=== PATIENT | female | born 1935 | race Caucasian/White ===

== ENCOUNTER 2017-05-13 08:28 | Observation (INO) ==
--- NOTE | 2017-05-13 08:40 | History & Physical Report ---
Date of Encounter: 05/13/17 Time of Encounter: 08:40 24 Hour HP Update - Instructions Instructions: If the History and Physical is less than 30 days old and was completed prior to A.M. admission and or procedure and has NOT been updated on calendar day of procedure please complete this update prior to performing procedure. - Update Patient reports changes in Medical Condition: No Changes in examination, assessment, or condition: No Changes in Medication: No Preop tests/diagnostics Reviewed: Yes Surgery Remains Indicated: Yes Consent for Planned Operative Procedure(s) Verified: Yes
[2017-05-13] MEDS ORDERED: Lidocaine -MPF 1% 2 ML VIAL ID ONE (09:16)
--- NOTE | 2017-05-13 09:20 | Anesthesia Evaluation PreOp ---
Date of Encounter: 05/13/17 Time of Encounter: 09:17 - Past History Planned Operation: Cryoablation Cardiac History: HTN, Hyperlipidemia, Arrhythmia (H/O A-Fib) Pulmonary History: Former smoker (quit in 1986,m smoked for 5 years), COPD ENGINEERING TECHNICAL SPECIALIST History: CVA (no residual), Other (H/O polio with RLE weakness) Other Medical History: Hepatic (metastatic lesion), Diabetes Type II, Other (H/ O breast CA S/P XRT, H/O colon CA, obesity BMI=42.6, depression) Anesthesia History: No Prior Anesthetic Complications, Past Anesthesia Alcohol Use: none Drug use: none Medications and Allergies Atorvastatin [Lipitor] 40 mg PO HS 09/17/16 [History] Carvedilol [Coreg] 6.25 mg PO BIDWM 09/17/16 [History] Insulin Glargine,Hum.rec.anlog [Lantus Solostar] 10 unit SQ QWEEK 09/17/16 [ History] Meclizine [Antivert] 12.5 mg PO TID 09/17/16 [History] Metformin HCl [Fortamet] 500 mg PO BID 09/17/16 [History] OLANZapine [Zyprexa] 5 mg PO HS 09/17/16 [History] Oxycodone HCl [Oxaydo] 5 mg PO Q6HR PRN 09/17/16 [History] Sertraline [Zoloft] 100 mg PO DAILY 09/17/16 [History] Docusate Sodium [Colace] 100 mg PO BID #60 capsule 10/18/16 [Rx] Fluticasone/Vilanterol [Breo Ellipta 100-25 Mcg INH] 1 each IH DAILY 10/18/16 [ History] Polyethylene Glycol 3350 [MiraLAX Powder Bulk 17.9 Oz] 17 gm PO DAILY #510 gm [Rx] Capecitabine [Xeloda] 3 tab PO BID #84 tablet 11/01/16 [Rx] Hydrocortisone 2.5% CREAM [Cortaid] 1 appl TP TID #1 tube 11/01/16 [Rx] Ondansetron HCl [Zofran] 4 mg PO Q4H PRN #30 tablet 11/01/16 [Rx] Prochlorperazine Maleate [Compazine] 10 mg PO Q6H PRN #30 tablet 11/01/16 [Rx] Omeprazole [PriLOSEC] 20 mg PO BIDAC #30 cap 11/20/16 [Rx] 3 Allergy/AdvReac Type Severity Reaction Status Date / Time Penicillins Allergy Rash Verified 03/14/17 16:21 - Meds/Allergy Pre-op Review Medications Reviewed: Yes Allergies Reviewed: Yes Beta Blockers on Current Med List: Yes If Beta Blockers taken, Date/Time (Last Dose taken): 05/13/2017 at 0630 Anesthesia Results - Labs Laboratory Tests 05/01/17 05/01/17 05/01/17 14:39 14:39 14:39 WBC 12.5 H Hgb 14.5 Hct 45.7 H Plt Count 344 PT 11.3 INR 1.1 Sodium 138 Potassium 4.1 BUN 18 Creatinine 0.84 - Imaging EKG: report reviewed (05/01/2017 SINUS RHYTHM MODERATE VOLTAGE CRITERIA FOR LVH, CONSIDER NORMAL VARIANT POSSIBLE ANTERIOR MYOCARDIAL INFARCTION, PROBABLY OLD INFERIOR MYOCARDIAL INFARCTION, PROBABLY OLD Left axis deviation POOR R WAVE PROGRESSION) Additional studies: 04/24/2013 Echo Impressions: * LVEF 45%. There is mild global hypokinesis. * Moderate aortic regurgitation. * Indeterminate diastolic function because of atrial fibrillation * Mild-moderate mitral regurgitation. * Mild tricuspid regurgitation. * Normal right ventricular size and function. * Probably mild pulmonary hypertension. * Estimated RVSP was 35 mmHg. * Clinical correlation is suggested. * Critical results called to ordering physician. Anesthesia Exam O2 Sat Height 1.63 m Height 1.63 m Weight 112.491 kg Weight 112.491 kg O2 Sat by Pulse Oximetry 90 Vital Signs Temp Pulse Resp BP Pulse Ox 97.9 F 88 18 157/83 90 05/13/17 09:08 05/13/17 09:08 05/13/17 09:08 05/13/17 09:08 05/13/17 09:08 Height: 5'4'' Weight: 248 lbs NPO (# of Hours): 8 Pain Scale: 7 (back) Pain Scale Used: Numeric (1 - 10) - HEENT Pupil (Motor): EOMI Mallampati: II Teeth: Edentulous Oral Opening: Greater than 3 - ENGINEERING TECHNICAL SPECIALIST LOC: Oriented ENGINEERING TECHNICAL SPECIALIST Motor: Normal RUE, Normal LUE, Normal LLE, Normal Face, Deficit RLE ENGINEERING TECHNICAL SPECIALIST Sensory: Normal: RUE, LUE, RLE, LLE, Face - Cardiac Rhythm: Regular Murmur: None - Pulmonary Breath Sounds: bilateral Clear Respiratory Effort: Symmetrical Anesthesia Assess/Plan ASA Score: 3 Modified Jeaneth Scale for Level of Consciousness: Cooperative, oriented, and tranquil Anesthetic Plan: General Monitoring Plan: Standard Monitors Recovery Plan: PACU
[2017-05-13] MEDS ORDERED: Albuterol 2.5 MG/3 ML NEBULIZER IH ONE (09:24)
[2017-05-13] MEDS ORDERED: Ringers Solution, Lactated 500 ML IVC SCH (09:30)
[2017-05-13] MEDS ORDERED: 0.9 % Sodium Chloride 1,000 ML ONE (10:15)
[2017-05-13] MEDS ORDERED: *HR* Labetalol 20 MG/4 ML SYRINGE IVP PRN (11:40)
[2017-05-13] MEDS ORDERED: Ringers Solution, Lactated 1,000 ML ONE (11:41)
[2017-05-13] MEDS ORDERED: Acetaminophen IV 1,000 MG/100 ML INFUS..BTL IVPB ONE (11:42)
[2017-05-13] MEDS: *HR* Meperidine 25 MG/ML SYRINGE IVP PRN ×2 (11:42→12:00)
[2017-05-13] MEDS ORDERED: *HR* Meperidine 25 MG/ML SYRINGE ONE (11:42)
[2017-05-13] MEDS: *HR* FentaNYL (PF) 100 MCG/2 ML VIAL IVP PRN ×4 (12:06→12:36)
[2017-05-13] MEDS ORDERED: *HR* OxyCODONE Oral Soln 5 MG/5 ML UD.LIQ PO PRN (12:54)
[2017-05-13] MEDS ORDERED: *HR* OxyCODONE Immed Rel 5 MG TABLET PO ONE (13:15)
[2017-05-13] MEDS ORDERED: Ondansetron 4 MG/2 ML VIAL IVP ONE ×2 (13:53→17:06)
--- NOTE | 2017-05-13 15:26 | Anesthesia Evaluation Post Op ---
Date of Encounter: 05/13/17 Time of Encounter: 14:35 - Vital Signs Vital Signs: Vital Signs/O2 Sat, Most Current Temp Pulse Resp BP Pulse Ox 97.9 F 74 18 161/71 93 05/13/17 12:58 05/13/17 14:00 05/13/17 14:00 05/13/17 14:00 05/13/17 14:00 - Lungs Lungs: Clear Ascult./Percussion - Airway Airway: Non-obstructed - Cardiovascular Regular Rate - Mental Status Mental Status: Alert & Oriented, Answers Appropriately - Pain Pain Scale: 9 (patient being admitted for intractable pain ) Pain Scale used: Numeric (1 - 10) - Nausea Vomiting Nausea Vomiting: Not Present - Hydration Hydration: Tolerates oral liquids, Has not voided - Discharge PostOp Status: Transfer Patient to floor
[2017-05-13] MEDS ORDERED: Ondansetron 4 MG/2 ML VIAL IVP PRN (16:02)
[2017-05-13] MEDS ORDERED: Naloxone 0.4 MG/ML INJ IVP PRN (16:02)
[2017-05-13] MEDS ORDERED: *HR* Dextrose 50 % in Water (Syg) 50 ML SYRINGE IVP PRN (16:02)
[2017-05-13] MEDS ORDERED: Dextrose Gel 15 GM/37.5 ML TUBE PO PRN ×2 (16:02)
[2017-05-13] MEDS ORDERED: D5% in Water 1,000 ML IVC PRN (16:02)
--- NOTE | 2017-05-13 16:10 | Internal Med History&Physical ---
<ParamjitHa - Last Filed: 05/13/17 16:07> Date of Encounter: 05/13/17 Time of Encounter: 16:07 Assessment and Plan (1) Intractable pain Current visit: Yes Status: Acute Patient reports severe pain s/p ablation of her liver, near the site of the procedure Will offer her Oxycodone 10 mg q6hr, Ultram 50 mg q6hr, and Tylenol PRN According to her eCW documents, she takes Oxycodone 7.5 mg q6hr, so this pain regimen will be higher Continue other supportive measures such as anti-emetics and start on clears given mild nausea Anticipate discharge tomorrow if her pain is better controlled (2) Afib Current visit: Yes Status: Chronic Patient currently in NSR and non-tachycardic Continue rate control with home Coreg dose She does not take anticoagulation but may be candidate given her history of cancer and PE Will hold off starting blood thinners for now given her report of blood after bowel movements; monitor Hb Qualifiers: Atrial fibrillation type: paroxysmal Qualified Code(s): I48.0 - Paroxysmal atrial fibrillation (3) Hypertension Current visit: Yes Status: Chronic Her blood pressure has been elevated since the procedure, likely secondary to pain Continue home Lisinopril and Coreg Will add IV Hydralazine PRN if SBP > 170 Qualifiers: Hypertension type: essential hypertension Qualified Code(s): I10 - Essential (primary) hypertension (4) Non-insulin dependent type 2 diabetes mellitus Current visit: Yes Status: Chronic A1c checked this month was 6.8% Start on low dose SSI ACHS accuchecks Will hold home anti-diabetic medications (5) Hyperlipidemia Current visit: Yes Status: Chronic Continue home Lipitor Qualifiers: Hyperlipidemia type: unspecified Qualified Code(s): E78.5 - Hyperlipidemia , unspecified (6) Colon cancer metastasized to liver Current visit: No Status: Chronic s/p ablation of liver mets today Continue follow up with [facility] upon discharge (7) DVT prophylaxis Current visit: Yes Status: Acute Heparin 5000 units BID Internal Medicine - H&P: HPI Chief complaint: intractable pain s/p liver ablation Admitted From: Home Plans for Post Hospital Care: Home History of present illness: Ms. Batista is a 81 year old female who presents with intractable pain after CT guided microwave ablation for hepatic mass. She had this set up as an outpatient for management of colon cancer that metastasized to her liver, and this tumor had been growing. According to her oncology notes, she had transverse colon resection in 2013 but unfortunately had recurrence of the disease 3 years later and PET scan showed a liver lesion. She declined chemotherapy but elected to have IR procedure that was performed today. Patient denies pain anywhere else other than her around her liver, and states she has no issues with breathing, fever, chills, headaches, diarrhea, or constipation. She normally does take Oxycodone for chronic pain related to her cancer. Pt does have history of AFib but is no longer on Coumadin. She did have PE's as well. She reports recently having bloody tissue after wiping s/p bowel movements. Past Med Surg Social Fam HX - Past Medical History Medical history: asthma, atrial fibrillation, cancer, CVA, diabetes, hyperlipidemia, hypertension Psychiatric history: depression - Past Surgical History Surgical History: hysterectomy, knee replacement - Social History Smoking Status: Former smoker Smokeless Tobacco Status: No Alcohol use: none Drug use: none Internal Medicine - H&P: Meds Atorvastatin [Lipitor] 40 mg PO HS 09/17/16 [History] Carvedilol [Coreg] 6.25 mg PO BIDWM 09/17/16 [History] Insulin Glargine,Hum.rec.anlog [Lantus Solostar] 10 unit SQ QWEEK 09/17/16 [ History] Meclizine [Antivert] 12.5 mg PO TID 09/17/16 [History] Metformin HCl [Fortamet] 500 mg PO BID 09/17/16 [History] OLANZapine [Zyprexa] 5 mg PO HS 09/17/16 [History] Oxycodone HCl [Oxaydo] 5 mg PO Q6HR PRN 09/17/16 [History] Sertraline [Zoloft] 100 mg PO DAILY 09/17/16 [History] Docusate Sodium [Colace] 100 mg PO BID #60 capsule 10/18/16 [Rx] Fluticasone/Vilanterol [Breo Ellipta 100-25 Mcg INH] 1 each IH DAILY 10/18/16 [ History] Polyethylene Glycol 3350 [MiraLAX Powder Bulk 17.9 Oz] 17 gm PO DAILY #510 gm [Rx] Capecitabine [Xeloda] 3 tab PO BID #84 tablet 11/01/16 [Rx] Hydrocortisone 2.5% CREAM [Cortaid] 1 appl TP TID #1 tube 11/01/16 [Rx] Ondansetron HCl [Zofran] 4 mg PO Q4H PRN #30 tablet 11/01/16 [Rx] Prochlorperazine Maleate [Compazine] 10 mg PO Q6H PRN #30 tablet 11/01/16 [Rx] Omeprazole [PriLOSEC] 20 mg PO BIDAC #30 cap 11/20/16 [Rx] 3 Allergy/AdvReac Type Severity Reaction Status Date / Time Penicillins Allergy Rash Verified 03/14/17 16:21 All Systems PM: A 10-system review of systems was performed and is negative for pertinent findings except as documented above in the HPI. - Constitutional Constitutional: no chills, no fever(s), no night sweats - EENT Eyes: no change in vision, no discharge, no pain, no photophobia Ears: no ear discharge, no ear pain, no tinnitus Nose, mouth and throat: no dysphagia, no nasal discharge, no neck pain, no sore throat - Cardiovascular Cardiovascular ROS IM: no chest pain, no diaphoresis, no dyspnea, no lightheadedness, no palpitations, no syncope - Respiratory Respiratory: no cough, no dyspnea, no wheezing, no excessive phlegm production - Gastrointestinal Gastrointestinal: abdominal pain (RUQ), no diarrhea, no hematemesis, no hematochezia, no melena, no nausea, no vomiting - Genitourinary Genitourinary: no change in urinary stream, no dysuria, no flank pain, no hematuria - Musculoskeletal Musculoskeletal ROS IM: no numbness, no tingling - Integumentary Integumentary IM: no rash, no unusual bruising - Neurological Neurological ROS: no confusion, no convulsions, no focal weakness, no numbness, no tingling, no tremor(s) - Hematologic/Lymphatic Hematologic/Lymphatic: no easy bleeding, no easy bruising - Constitutional Vitals: Temp Pulse Resp BP Pulse Ox 97.6 F 84 16 186/95 93 05/13/17 15:45 05/13/17 15:45 05/13/17 15:45 05/13/17 15:45 05/13/17 15:45 General appearance: Present: cooperative, pleasant, no acute distress, answers questions appropriately - Head Head exam: Present: atraumatic, normocephalic - Eye Eye exam: Present: PERRL, conjuntiva pink, sclera anicteric Pupils: Present: PERRL - Neck Neck exam general surgery: Present: supple, trachea midline. Absent: lymphadenopathy - Respiratory Respiratory exam: Present: CTAB. Absent: accessory muscle use, rales, rhonchi, wheezes - Cardiovascular Cardiovascular exam: Present: RRR, +S1, +S2. Absent: diastolic murmur, gallop, rubs, systolic murmur - GI/Abdominal GI/Abdominal exam: Present: normal bowel sounds, soft, tenderness (RUQ), no peritoneal signs. Absent: distended, guarding, hernia Additional comments: incision at the epigastric area does not appeared infected, no erythema or drainage noted. No palpable mass/hematoma - Extremities Exam Extremities exam: Present: warm, radial pulses palpable and symmetrical. Absent : calf tenderness, cyanotic, pedal edema - Neurological Exam Neurological exam: Present: alert, no focal deficits. Absent: facial droop, speech deficit - Skin Skin exam: Present: dry, intact Internal Med - H&P Results - Impressions ITS Impressions CT Guided Tissue Ablation 05/13/17 00:00 IMPRESSION: Successful CT-guided microwave ablation of a hepatic mass D/ / Stefan Madison MD / Stefan Madison MD Interpreting Provider: Stefan Madison MD <Dariel Higgins T - Last Filed: 05/13/17 16:54> Date of Encounter: 05/13/17 Internal Medicine - H&P: HPI History of present illness: Ms. Batista is a 81 year old female All Systems PM: A 10-system review of systems was performed and is negative for pertinent findings except as documented above in the HPI. - Constitutional Vitals: Temp Pulse Resp BP Pulse Ox 97.6 F 84 16 186/95 93 05/13/17 15:45 05/13/17 15:45 05/13/17 15:45 05/13/17 15:45 05/13/17 15:45 Internal Med - H&P Results - Impressions ITS Impressions CT Guided Tissue Ablation 05/13/17 00:00 IMPRESSION: Successful CT-guided microwave ablation of a hepatic mass D/ / Stefan Madison MD / Stefan Madison MD Interpreting Provider: Stefan Madison MD - Attending Attestation I have independently seen and examined this patient on April, and discussed the plan of care with the resident physician, was documentation reflects plan of care. Seen and evaluated at the bedside independently. She is admitted directly from interventional radiology for pain control following ablation of a liver mass. She has a solitary liver mass, metastasis from colon cancer. She also has Afib, HTN, HLD, She has a hx of PE and was on Warfarin, she has also had CVA in the past Physical exam is unremarkable NO recent labs, we will check labs I agree with pain control Discussion about anticoagulation for atrial fibrillation is to be had with patient, at this time she is immediately postop procedure. The details of the resident physicians documentation.
[2017-05-13] MEDS: Insulin LISPRO 300 UNITS/3 ML VIAL SQ SCH ×2 (16:48→20:47)
[2017-05-13] MEDS: *HR* OxyCODONE Immed Rel 5 MG TABLET PO PRN (16:48)
[2017-05-13] MEDS: Lisinopril 20 MG TABLET PO SCH (16:48)
[2017-05-13] MEDS ORDERED: *HR* Rocuronium Bromide 50 MG/5 ML VIAL IVC ONE (17:06)
[2017-05-13] MEDS ORDERED: EPHEDrine 50 MG/ML VIAL IVP ONE (17:06)
[2017-05-13] MEDS ORDERED: *HR* Labetalol 20 MG/4 ML SYRINGE IVP ONE (17:06)
[2017-05-13] MEDS ORDERED: *HR* Succinylcholine 200 MG/10 ML VIAL IVP ONE (17:06)
[2017-05-13] MEDS ORDERED: *HR* Propofol 200 MG/20 ML VIAL IVP ONE (17:06)
[2017-05-13] MEDS ORDERED: Lidocaine -MPF 2% 5 ML VIAL INFILT ONE (17:06)
[2017-05-13] MEDS: *HR* Heparin 5,000 UNIT/ML VIAL SQ SCH (18:29)
[2017-05-13] MEDS: OLANZapine 5 MG TAB.RAPDIS PO SCH (20:34)
[2017-05-13] MEDS: Acetaminophen 325 MG TABLET PO PRN (20:34)
[2017-05-14] MEDS: *HR* Heparin 5,000 UNIT/ML VIAL SQ SCH (05:14)
[2017-05-14] MEDS: Acetaminophen 325 MG TABLET PO PRN (05:15)
[2017-05-14 06:06] LABS: Alanine Aminotransferase 191 Units/L (7-52); Albumin 3.2 g/dL (3.5-5.7); Albumin/Globulin Ratio 1.2 (1.1-2.2); Alkaline Phosphatase 80 Units/L (34-104); Aspartate Amino Transferase 266 Units/L (13-39); BUN/Creatinine Ratio 16 (6-26); Bilirubin,Total 1.6 mg/dL (0.3-1.0); Blood Urea Nitrogen 12 mg/dL (8-23); Calcium 8.3 mg/dL (8.6-10.3); Carbon Dioxide 29 mEq/L (23-29); Chloride 106 mEq/L (98-107); Globulin 2.6 g/dL (2.4-3.5); Glucose 118 mg/dL (70-105); Osmolality,Calculated 291 (280-300); Potassium 3.4 mEq/L (3.5-5.1); Sodium 140 mEq/L (136-145); Total Protein 5.8 g/dL (6.4-8.9); eGFR For African Americans > 60 (> 60); eGFR For Non-African Americans > 60 (> 60)
[2017-05-14] MEDS: Insulin LISPRO 300 UNITS/3 ML VIAL SQ SCH ×4 (08:20→21:03)
[2017-05-14] MEDS: Lisinopril 20 MG TABLET PO SCH (08:30)
[2017-05-14] MEDS: traMADol 50 MG TABLET PO PRN ×3 (10:27→22:40)
--- NOTE | 2017-05-14 16:11 | Internal Med Progress Note ---
Date of Encounter: 05/14/17 Time of Encounter: 16:07 - Assessment and plan (1) Other acute postprocedural pain Current Visit: Yes Status: Acute Assessment and plan: uncontrolled abdominal pain post liver ablation. Pain now controlled. Discussed with Dr. Madison (IR) in patients typically discharged home on Tylenol or NSAIDs. Continue PRN OxyIR for now with elevated LFTs and reported bloody stools. (2) Colon cancer metastasized to liver Current Visit: No Status: Chronic Assessment and plan: With stage III colon cancer in 2013, declined adjuvant chemotherapy that time. Had recurrence in 05/2016 and now with enlarging solitary metastatic liver lesion. Per chart review, patient follows with Dr. Zhang with [facility]. She was evaluated by interventional radiology who recommended thermal ablation given the size and location of the lesion. S/p liver thermal ablation on 05/13/[address] Madison. LFTs elevated which is to be expected. Follow-up with oncology outpatient as previously planned. (3) Afib Current Visit: Yes Status: Chronic Assessment and plan: per hx. rate controlled. Not on anticoagulation at this time for unknown reasons. However she may be a candidate given her history of cancer and pulmonary embolism. Hold on anticoagulation at this time with reported bloody stools. Occult stool, CBC pending. Cardiology consulted for anticoagulation recommendations. Qualifiers: Atrial fibrillation type: paroxysmal Qualified Code(s): I48.0 - Paroxysmal atrial fibrillation (4) Hyperlipidemia Current Visit: Yes Status: Chronic Assessment and plan: per hx. C ont home statin Qualifiers: Hyperlipidemia type: unspecified Qualified Code(s): E78.5 - Hyperlipidemia , unspecified (5) Hypertension Current Visit: Yes Status: Chronic Assessment and plan: per hx. Cont home BP medications. Monitor BP and titrate PRN Qualifiers: Hypertension type: essential hypertension Qualified Code(s): I10 - Essential (primary) hypertension (6) Non-insulin dependent type 2 diabetes mellitus Current Visit: Yes Status: Chronic Assessment and plan: per hx. Holding home metformin. SSI. Monitor blood sugars and titrate PRN (7) DVT prophylaxis Current Visit: Yes Status: Acute Assessment and plan: SCDs - Subjective Interval history: Seen and examined at bedside. Patient is new to me. Information obtained from chart review and patient report the patient does not know details. She is able to tell me basic information but does not know who her oncologist is or the physician who ordered procedure. Says pain is well controlled at this time. Has some mild abdominal tenderness but significantly improved. No chest pain or shortness of breath. - Constitutional Vitals: Temp Pulse Resp BP Pulse Ox 98.0 F 91 16 109/66 93 05/14/17 14:14 05/14/17 14:14 05/14/17 14:14 05/14/17 14:14 05/14/17 14:14 General appearance: Present: cooperative, A&O X 2, pleasant, no acute distress, answers questions appropriately - Head Head exam: Present: atraumatic, normocephalic - Eye Eye exam: Present: PERRL, conjuntiva pink, sclera anicteric Pupils: Present: PERRL - Neck Neck exam general surgery: Present: supple, trachea midline. Absent: lymphadenopathy - Respiratory Respiratory exam: Present: CTAB. Absent: accessory muscle use, rales, rhonchi, wheezes - Cardiovascular Cardiovascular exam: Present: RRR, +S1, +S2. Absent: diastolic murmur, gallop, rubs, systolic murmur - GI/Abdominal GI/Abdominal exam: Present: normal bowel sounds, soft, no peritoneal signs. Absent: distended, tenderness - Extremities Exam Extremities exam: Present: warm, radial pulses palpable and symmetrical. Absent : calf tenderness, cyanotic, pedal edema - Neurological Exam Neurological exam: Present: CN II-XII intact, oriented X3, no focal deficits. Absent: pronater drift, facial droop, speech deficit - Skin Skin exam: Present: dry, intact Internal Medicine: Result - Labs CBC & Chem 7: 05/14/17 05:25 Labs: BMP 05/14/17 05:25 Sodium 140 Potassium 3.4 L Chloride 106 Carbon Dioxide 29 BUN 12 Creatinine 0.74 Glucose 118 H Calcium 8.3 L Liver Function 05/14/17 Range/Units 05:25 Total Bilirubin 1.6 H (0.3-1.0) mg/dL AST 266 H (13-39) Units/L ALT 191 H (7-52) Units/L Alkaline Phosphatase 80 (34-104) Units/L Albumin 3.2 L (3.5-5.7) g/dL Consult Discharge Plan - Plan Referrals: Dominick Smith MD [Primary Care Provider] -
[2017-05-14 16:53] LABS: Hemoglobin 13.4 g/dL (11.5-15.4); Mean Corpuscular HGB Conc 31.2 g/dL (31.6-35.5); Mean Corpuscular Hemoglobin 28.3 pg (28.0-33.3); Mean Corpuscular Volume 90.9 fL (83.0-100.0); Mean Platelet Volume 10.6 fL (9.4-12.4); Platelet Count 253 K/mcL (140-400); Red Blood Count 4.73 M/mcL (3.82-4.97); Red Cell Distribution Width 13.5 % (11.5-14.5)
[2017-05-14 16:59] LABS: INR 1.1
[2017-05-14] MEDS: OLANZapine 5 MG TAB.RAPDIS PO SCH (19:48)
[2017-05-14] MEDS: *HR* OxyCODONE Immed Rel 5 MG TABLET PO PRN (19:49)
[2017-05-15] MEDS: Acetaminophen 325 MG TABLET PO PRN ×2 (00:31→18:24)
[2017-05-15] MEDS: *HR* OxyCODONE Immed Rel 5 MG TABLET PO PRN ×3 (06:15→22:22)
[2017-05-15 06:22] LABS: Alanine Aminotransferase 174 Units/L (7-52); Albumin/Globulin Ratio 1.2 (1.1-2.2); Alkaline Phosphatase 84 Units/L (34-104); Aspartate Amino Transferase 165 Units/L (13-39); BUN/Creatinine Ratio 13 (6-26); Bilirubin,Total 1.7 mg/dL (0.3-1.0); Blood Urea Nitrogen 9 mg/dL (8-23); Calcium 8.1 mg/dL (8.6-10.3); Carbon Dioxide 31 mEq/L (23-29); Chloride 106 mEq/L (98-107); Globulin 2.6 g/dL (2.4-3.5); Glucose 94 mg/dL (70-105); Osmolality,Calculated 288 (280-300); Potassium 3.7 mEq/L (3.5-5.1); Sodium 140 mEq/L (136-145); Total Protein 5.6 g/dL (6.4-8.9); eGFR For African Americans > 60 (> 60); eGFR For Non-African Americans > 60 (> 60)
[2017-05-15] MEDS: Insulin LISPRO 300 UNITS/3 ML VIAL SQ SCH ×4 (07:42→22:23)
[2017-05-15] MEDS: Lisinopril 20 MG TABLET PO SCH (08:40)
[2017-05-15] MEDS ORDERED: Lisinopril 20 MG TABLET PO SCH (09:00)
[2017-05-15] MEDS: traMADol 50 MG TABLET PO PRN ×2 (11:10→17:20)
--- NOTE | 2017-05-15 15:28 | Internal Med Progress Note ---
Date of Encounter: 05/15/17 Time of Encounter: 15:26 - Assessment and plan (1) Other acute postprocedural pain Current Visit: Yes Status: Acute Assessment and plan: uncontrolled abdominal pain post liver ablation. Pain now controlled. Discussed with Dr. Madison (IR) in patients typically discharged home on Tylenol or NSAIDs. Continue PRN OxyIR for now with elevated LFTs and reported bloody stools. 15/05/2017 Patient still has a right-sided pain in the ribs as well as back. Today's a postprocedural day 2 Patient's pain is adequately controlled with the IV/oral medication. We will continue the same medications for now. (2) Afib Current Visit: Yes Status: Chronic Assessment and plan: per hx. rate controlled. Not on anticoagulation at this time for unknown reasons. However she may be a candidate given her history of cancer and pulmonary embolism. Hold on anticoagulation at this time with reported bloody stools. Occult stool, CBC pending. Cardiology consulted for anticoagulation recommendations. 15/05/2017 Noted that cardiology was consulted for anticoagulation recommendation. Please note that this patient is very noncompliant after reviewing the chart. Patient had a previous record of noncompliant with chemotherapy/recommendations from oncology. Patient also had a previous history of fall and fractured ankle. Case discussed with oncology and they will be happy to review and make recommendations. Qualifiers: Atrial fibrillation type: paroxysmal Qualified Code(s): I48.0 - Paroxysmal atrial fibrillation (3) Hyperlipidemia Current Visit: Yes Status: Chronic Assessment and plan: per hx. C ont home statin Qualifiers: Hyperlipidemia type: unspecified Qualified Code(s): E78.5 - Hyperlipidemia , unspecified (4) Hypertension Current Visit: Yes Status: Chronic Assessment and plan: per hx. Cont home BP medications. Monitor BP and titrate PRN Qualifiers: Hypertension type: essential hypertension Qualified Code(s): I10 - Essential (primary) hypertension (5) Colon cancer metastasized to liver Current Visit: No Status: Chronic Assessment and plan: With stage III colon cancer in 2013, declined adjuvant chemotherapy that time. Had recurrence in 05/2016 and now with enlarging solitary metastatic liver lesion. Per chart review, patient follows with Dr. Zhang with [facility]. She was evaluated by interventional radiology who recommended thermal ablation given the size and location of the lesion. S/p liver thermal ablation on 05/13/[address] Madison. LFTs elevated which is to be expected. Follow-up with oncology outpatient as previously planned. (6) DVT prophylaxis Current Visit: Yes Status: Acute Assessment and plan: SCDs - Subjective Interval history: Patient seen and examined. Chart reviewed. Patient is comfortably lying in the bed. Patient claims that she has an occasional pain in her back as well as posterior ribs - Constitutional Vitals: Temp Pulse Resp BP Pulse Ox 97.8 F 87 18 111/71 92 05/15/17 11:21 05/15/17 11:21 05/15/17 11:21 05/15/17 11:21 05/15/17 11:21 General appearance: Present: cooperative, A&O X 2, pleasant, no acute distress, answers questions appropriately - Head Head exam: Present: atraumatic, normocephalic - Eye Eye exam: Present: PERRL, conjuntiva pink, sclera anicteric Pupils: Present: PERRL - Neck Neck exam general surgery: Present: supple, trachea midline. Absent: lymphadenopathy - Respiratory Respiratory exam: Present: CTAB. Absent: accessory muscle use, rales, rhonchi, wheezes - Cardiovascular Cardiovascular exam: Present: RRR, +S1, +S2. Absent: diastolic murmur, gallop, rubs, systolic murmur - GI/Abdominal GI/Abdominal exam: Present: normal bowel sounds, soft, no peritoneal signs. Absent: distended, tenderness - Extremities Exam Extremities exam: Present: warm, radial pulses palpable and symmetrical. Absent : calf tenderness, cyanotic, pedal edema - Neurological Exam Neurological exam: Present: CN II-XII intact, oriented X3, no focal deficits. Absent: pronater drift, facial droop, speech deficit - Skin Skin exam: Present: dry, intact Internal Medicine: Result - Labs CBC & Chem 7: 05/14/17 16:39 05/15/17 05:00 Labs: Short CBC 05/14/17 Range/Units 16:39 WBC 11.7 H (4.3-11.1) K/mcL Hgb 13.4 (11.5-15.4) g/dL Hct 43.0 (35.3-44.9) % Plt Count 253 (140-400) K/mcL BMP 05/15/17 05:00 Sodium 140 Potassium 3.7 Chloride 106 Carbon Dioxide 31 H BUN 9 Creatinine 0.72 Glucose 94 Calcium 8.1 L Liver Function 05/15/17 Range/Units 05:00 Total Bilirubin 1.7 H (0.3-1.0) mg/dL AST 165 H (13-39) Units/L ALT 174 H (7-52) Units/L Alkaline Phosphatase 84 (34-104) Units/L Albumin 3.0 L (3.5-5.7) g/dL - ABG Interpretation ABG results: PT/INR, D-dimer PT 12.0 Seconds (9.4-12.1) 05/14/17 16:39 Consult Discharge Plan - Plan Referrals: Dominick Smith MD [Primary Care Provider] -
[2017-05-15] MEDS: OLANZapine 5 MG TAB.RAPDIS PO SCH (22:24)
[2017-05-16] MEDS: traMADol 50 MG TABLET PO PRN ×2 (03:16→12:08)
[2017-05-16 05:45] LABS: Basophils % 0.4 %; Eosinophils # 0.2 K/mcL (0.0-0.6); Hematocrit 37.9 % (35.3-44.9); Immature Granulocytes % 0.7 % (0-4); Lymphocytes # 1.2 K/mcL (0.6-4.6); Lymphocytes % 11.4 %; Mean Corpuscular HGB Conc 31.1 g/dL (31.6-35.5); Mean Corpuscular Hemoglobin 28.1 pg (28.0-33.3); Mean Corpuscular Volume 90.2 fL (83.0-100.0); Mean Platelet Volume 10.7 fL (9.4-12.4); Monocytes # 1.2 K/mcL (0.0-1.3); Monocytes % 11.3 %; Neutrophils # 7.6 K/mcL (1.6-8.9); Platelet Count 183 K/mcL (140-400); Red Cell Distribution Width 13.3 % (11.5-14.5); Segmented Neutrophils % 74.2 %
[2017-05-16 05:46] LABS: Hemoglobin 11.8 g/dL (11.5-15.4)
[2017-05-16 06:04] LABS: Alanine Aminotransferase 119 Units/L (7-52); Albumin 3.1 g/dL (3.5-5.7); Albumin/Globulin Ratio 1.1 (1.1-2.2); Alkaline Phosphatase 88 Units/L (34-104); Aspartate Amino Transferase 77 Units/L (13-39); BUN/Creatinine Ratio 14 (6-26); Bilirubin,Total 1.6 mg/dL (0.3-1.0); Blood Urea Nitrogen 10 mg/dL (8-23); Calcium 8.3 mg/dL (8.6-10.3); Carbon Dioxide 29 mEq/L (23-29); Chloride 105 mEq/L (98-107); Globulin 2.8 g/dL (2.4-3.5); Glucose 133 mg/dL (70-105); Osmolality,Calculated 287 (280-300); Potassium 3.8 mEq/L (3.5-5.1); Sodium 138 mEq/L (136-145); Total Protein 5.9 g/dL (6.4-8.9); eGFR For African Americans > 60 (> 60); eGFR For Non-African Americans > 60 (> 60)
[2017-05-16] MEDS: *HR* OxyCODONE Immed Rel 5 MG TABLET PO PRN ×2 (07:47→14:04)
[2017-05-16] MEDS: Lisinopril 20 MG TABLET PO SCH (08:25)
[2017-05-16] MEDS: Insulin LISPRO 300 UNITS/3 ML VIAL SQ SCH ×2 (08:25→12:08)
--- NOTE | 2017-05-16 10:20 | Discharge Summary ---
Date of Encounter: 05/16/17 Time of Encounter: 10:19 - Discharge Diagnosis (1) Other acute postprocedural pain Priority: Primary Status: Acute (2) Afib Priority: Secondary Status: Chronic Qualifiers: Atrial fibrillation type: paroxysmal Qualified Code(s): I48.0 - Paroxysmal atrial fibrillation (3) Hyperlipidemia Priority: Secondary Status: Chronic Qualifiers: Hyperlipidemia type: unspecified Qualified Code(s): E78.5 - Hyperlipidemia , unspecified (4) Hypertension Priority: Secondary Status: Chronic Qualifiers: Hypertension type: essential hypertension Qualified Code(s): I10 - Essential (primary) hypertension (5) Colon cancer metastasized to liver Priority: Secondary Status: Chronic (6) DVT prophylaxis Priority: Secondary Status: Acute - Discharge Medications Home Medications: Atorvastatin [Lipitor] 40 mg PO HS 09/17/16 [History] Carvedilol [Coreg] 6.25 mg PO BIDWM 09/17/16 [History] Meclizine [Antivert] 12.5 mg PO TID 09/17/16 [History] Metformin HCl [Fortamet] 500 mg PO BID 09/17/16 [History] OLANZapine [Zyprexa] 5 mg PO HS 09/17/16 [History] Oxycodone HCl [Oxaydo] 5 mg PO Q6HR PRN 09/17/16 [History] Sertraline [Zoloft] 100 mg PO DAILY 09/17/16 [History] Docusate Sodium [Colace] 100 mg PO BID #60 capsule 10/18/16 [Rx] Fluticasone/Vilanterol [Breo Ellipta 100-25 Mcg INH] 1 each IH DAILY 10/18/16 [ History] Polyethylene Glycol 3350 [MiraLAX Powder Bulk 17.9 Oz] 17 gm PO DAILY #510 gm [Rx] Omeprazole [PriLOSEC] 20 mg PO BIDAC #30 cap 11/20/16 [Rx] Exenatide Microspheres [Bydureon Pen] 2 mg SQ AD 05/14/17 [History] Lisinopril [Zestril] 20 mg PO DAILY 05/14/17 [History] Allergies/Adverse Reactions: 3 Allergy/AdvReac Type Severity Reaction Status Date / Time Penicillins Allergy Rash Verified 03/14/17 16:21 Procedures/tests Complete & Pending: Procedures Performed prior 72 hours Category Date Time Status EV echocardiogram Stat Y 05/15/17 08:46 Completed Date of admission: 05/13/17 15:07 Primary care physician: Domniick Smith, Consults: 05/15/17 15:22 Consult to Oncology Hematology [CONS] Routine Consulting Provider: Maggie Colby Reason for Consult: CA colon With liver metastases. Call Completed: Yes Discharging clinician: Viktor Wilson - Patient Status Disposition: Home, Self-Care Condition: Good Functional capacity at discharge: uses cane/walker Overall status at discharge: patient is progressing back to baseline - Discharge Instructions Follow Up With: Dominick Smith MD [Primary Care Provider] - Maggie Colby MD [Partnered Physician] - - Diet and Activity Activity: increase activity as tolerated Diet: diabetic diet Interval History: Ms. Batista is a 81 year old female who presents with intractable pain after CT guided microwave ablation for hepatic mass. She had this set up as an outpatient for management of colon cancer that metastasized to her liver, and this tumor had been growing. According to her oncology notes, she had transverse colon resection in 2013 but unfortunately had recurrence of the disease 3 years later and PET scan showed a liver lesion. She declined chemotherapy but elected to have IR procedure that was performed today. Patient denies pain anywhere else other than her around her liver, and states she has no issues with breathing, fever, chills, headaches, diarrhea, or constipation. She normally does take Oxycodone for chronic pain related to her cancer. Pt does have history of AFib but is no longer on Coumadin. She did have PE's as well. She reports recently having bloody tissue after wiping s/p bowel movements. Hospital course: Ms. Batista is a 81 year old female was hospitalized for pain management which is likely secondary to the procedure. The procedure she underwent was hepatitic ablation of the metastatic liver lesion from the carcinoma of the colon. Patient's pain was well-controlled with the intravenous pain medication. There was a concern raised during this period that anticoagulation for her in view of underlying chronic paroxysmal atrial fibrillation/pulmonary embolism. I had a detailed discussion with the patient regarding anticoagulation issue. Patient had multiple falls in the past where her head was hurt and she had a fracture of her ankle. She also previous history of a stroke. Her [id number] score is 7 Her HASBLED score is 7 Discussed with the patient regarding risk/benefits of anticoagulation. Risk: Stroke, Fatal intracerebral hemorrhage after fall, recurrent embolism, recurrent pulmonary embolism and possible from any of the vascular event. Benefits: Prevention of any embolic episode/clotting episodes. Patient commented that the risk is high as compared to the benefits and she declined anticoagulation. I also referred this patient to oncology hematology for further evaluation and management. Plan: Patient is keen to go home today. Patient does have a pain medications at home. Patient will follow up with the primary care/oncology. All questions answered. - Time Spent with Patient Total time spent providing and/or coordinating discharge services: - Constitutional Vitals: Temp Pulse Resp BP Pulse Ox 98.3 F 90 15 145/78 95 05/16/17 06:57 05/16/17 06:57 05/16/17 06:57 05/16/17 06:57 05/16/17 06:57 General appearance: Present: cooperative, A&O X 2, pleasant, no acute distress, answers questions appropriately - Head Head exam: Present: atraumatic, normocephalic - Eye Eye exam: Present: PERRL, conjuntiva pink, sclera anicteric Pupils: Present: PERRL - Neck Neck exam general surgery: Present: supple, trachea midline. Absent: lymphadenopathy - Respiratory Respiratory exam: Present: CTAB. Absent: accessory muscle use, rales, rhonchi, wheezes - Cardiovascular Cardiovascular exam: Present: RRR, +S1, +S2. Absent: diastolic murmur, gallop, rubs, systolic murmur - GI/Abdominal GI/Abdominal exam: Present: normal bowel sounds, soft, no peritoneal signs. Absent: distended, tenderness - Extremities Exam Extremities exam: Present: warm, radial pulses palpable and symmetrical. Absent : calf tenderness, cyanotic, pedal edema - Neurological Exam Neurological exam: Present: CN II-XII intact, oriented X3, no focal deficits. Absent: pronater drift, facial droop, speech deficit - Skin Skin exam: Present: dry, intact
[2017-05-16 11:39] VITALS: BP 125/74
== END 2017-05-16 17:07 | disposition home or self-care (01) ==
LOC: 3ANU 08:28 → INTRAD 08:28
PROVIDERS: ADMIT Internal Medicine; ATTEND Internal Medicine
PROC: [UNRECOGNIZED PROCEDURE] (2017-05-13 09:15)

== ENCOUNTER 2018-12-22 18:59 | Observation (INO) ==
[2018-12-23] MEDS ORDERED: Naloxone 0.4 MG/ML INJ IVP PRN (04:14)
--- NOTE | 2018-12-23 04:31 | Internal Med History&Physical ---
Date of Encounter: 12/23/18 Time of Encounter: 02:30 Internal Medicine - H&P: HPI Chief complaint: Right flank pain Admitted From: Home Plans for Post Hospital Care: Home History of present illness: Ms. Batista is a 83 year old female with past medical history significant for colon cancer with metastasis to abdomen, hypertension, hyperlipidemia, A. fib, PE, COPD, diabetes, GERD, polio, and depression who presents as hospital transfer from [facility] ER where she presented for right flank pain. Reports she has been having intermittent right flank pain for past few weeks but has been getting increasingly worse and last night rated her pain at 10/10 and described as aching. Reports her pain is sometimes associated with nausea. Also reports some dysuria over the past few days as well. Sending ER obtained a CBC, CMP, lipase, and lactic acid which were all unremarkable besides a white blood cell count of 13.6, hemoglobin of 11.4, and GFR of 59. Sending ER also obtained a UA which showed large leukocyte esterase, WBC, RBC, and bacteria. Sending ER also obtained a CT of abdomen and pelvis which showed inflammatory changes noted of the distal stomach perhaps involving a portion of duodenum that could be secondary to thyroid colitis or ulceration, moderate irregular wall thickening of distal stomach which may represent edema or inflammation and is unable to fully exclude a mass, no evidence of free air or fluid collections, scattered omental and mesenteric nodules which may be due to reactive lymph nodes that could represent metastatic foci, large liver mass with a maximum measurement of 6.2 cm larger from prior study consistent with a metastatic focus or primary, heterogeneous mass in the rectus abdominis musculature on the left which may be due to a hematoma however neoplastic focus cannot be ruled out, additional chronic degenerative benign and postsurgical changes noted. Sending ER started patient on ceftriaxone, and also administered Zofran, Toradol, and fluids. Currently reports resolution of her pain. Currently denies any headache, numbness, tingling, chest pain, shortness of breath, abdominal pain, or bowel changes. Patient reports previously following with [facility] then changing to [facility]. Patient now requests to switch back to [facility] to receive care closer to home. Reports she has received only radiation for treatment in the past and at her last appointment at the end of November [facility] was suggesting to initiate chemotherapy. Patient also reports following regularly with her PCP. Past Med Surg Social Fam HX - Past Medical History Medical history: atrial fibrillation, cancer, COPD, CVA, diabetes, hyperlipidemia, hypertension Additional medical history: polio Psychiatric history: depression - Past Surgical History Surgical History: hysterectomy, knee replacement Additional surgical history: lumpectomy rt breast, ankle surgery-rt, left eye surgery, - Social History Smoking Status: Former smoker Smokeless Tobacco Status: No Alcohol use: none Drug use: none Internal Medicine - H&P: Meds Atorvastatin [Lipitor] 40 mg PO HS 09/17/16 [History] Carvedilol [Coreg] 6.25 mg PO BIDWM 09/17/16 [History] Meclizine [Antivert] 12.5 mg PO TID 09/17/16 [History] Metformin HCl [Fortamet] 500 mg PO BID 09/17/16 [History] OLANZapine [Zyprexa] 5 mg PO HS 09/17/16 [History] Oxycodone HCl [Oxaydo] 5 mg PO Q6HR PRN 09/17/16 [History] Sertraline [Zoloft] 100 mg PO DAILY 09/17/16 [History] Docusate Sodium [Colace] 100 mg PO BID #60 capsule 10/18/16 [Rx] Fluticasone/Vilanterol [Breo Ellipta 100-25 Mcg INH] 1 each IH DAILY 10/18/16 [History] Polyethylene Glycol 3350 [MiraLAX Powder Bulk 17.9 Oz] 17 gm PO DAILY #510 gm 10/18/16 [Rx] Omeprazole [PriLOSEC] 20 mg PO BIDAC #30 cap 11/20/16 [Rx] Exenatide Microspheres [Bydureon Pen] 2 mg SQ AD 05/14/17 [History] Lisinopril [Zestril] 20 mg PO DAILY 05/14/17 [History] Oxygen 1 each .ROUTE AD 06/14/17 [History] Ondansetron HCl [Zofran] 4 mg PO Q4H PRN #30 tablet 07/25/18 [Rx] Prochlorperazine Maleate [Compazine] 10 mg PO Q6H PRN #30 tablet 07/25/18 [Rx] Capecitabine [Xeloda] 3 tab PO BID #84 tablet 08/06/18 [Rx] Allergy/AdvReac Type Severity Reaction Status Date / Time Penicillins Allergy Rash Verified 08/01/18 13:55 All Systems PM: A 10-system review of systems was performed and is negative for pertinent findings except as documented above in the HPI. - Constitutional Vitals: Temp Pulse Resp BP Pulse Ox 98.4 F 86 16 151/76 92 12/23/18 02:38 12/23/18 02:38 12/23/18 02:38 12/23/18 02:38 12/23/18 02:38 Exam: General: Fully alert and oriented. Easily gets off topic and needs to be redirected. Skin:Normal color, no rash, no lesions. HEENT:Pupils equal, round and reactive. Cardiovascular:Normal S1 & S2, no rubs, murmurs or gallops. No JVD. Pulse regular. Lungs:Breath sounds decreased, no wheezes or crackles. Abdomen:Soft, non-tender, no rigidity. Appears distended. Extremities:No deformity, no edema or tenderness, no joint swelling or clubbing. Neurological:Normal cognition and motor skills. Pulses:Carotid and radial pulses normal +2. Rest of the physical exam is non contributory. - Assessment and Plan (1) Urinary tract infection Current Visit: Yes Status: Acute Assessment and plan: Sending ER obtained a UA which showed large leukocyte esterase, WBC, RBC, and bacteria. Patient reports dysuria for past few days and right flank pain for past few weeks. Sending ER started patient on Ceftriaxone, will continue same. Sending ER gave patient IVF's. Urine and blood cultures pending. Qualifiers: Qualified Code(s): N39.0 - Urinary tract infection, site not specified (2) Metastatic colon cancer in female Current Visit: Yes Status: Chronic Assessment and plan: Patient with known mestastatic colon cancer reports previously following with [facility] then changing to [facility]. Patient now requests to switch back to [facility] to receive care closer to home. Reports she has received only radiation for treatment in the past and at her last appointment at the end of November [facility] was suggesting to initiate c hemotherapy. Sending ER also obtained a CT of abdomen and pelvis which showed inflammatory changes noted of the distal stomach perhaps involving a portion of duodenum that could be secondary to thyroid colitis or ulceration, moderate irregular wall thickening of distal stomach which may represent edema or inflammation and is unable to fully exclude a mass, no evidence of free air or fluid collections, scattered omental and mesenteric nodules which may be due to reactive lymph nodes that could represent metastatic foci, large liver mass with a maximum measurement of 6.2 cm larger from prior study consistent with a metastatic focus or primary, heterogeneous mass in the rectus abdominis musculature on the left which may be due to a hematoma however neoplastic focus cannot be ruled out, additional chronic degenerative benign and postsurgical changes noted. Oncology consult ordered, will need called in a.m. (3) Abnormal CT of the abdomen Current Visit: Yes Status: Acute Assessment and plan: Plan as stated above. (4) Increased white blood cell count Current Visit: Yes Status: Acute Assessment and plan: Likely secondary to suspected UTI. Plan as stated above. Repeat labs ordered. Qualifiers: Leukocytosis type: unspecified Qualified Code(s): D72.829 - Elevated white blood cell count, unspecified (5) Right flank pain Current Visit: Yes Status: Chronic Assessment and plan: Reports intermittent right flank pain over past few weeks. Currently resolved following medications received at sending ER. Possibly related to findings above, plan as stated above. (6) Decreased hemoglobin Current Visit: Yes Status: Acute Assessment and plan: Sending ER labs showed minimally decreased hemoglobin 11.4. No signs of bleeding. Repeat labs ordered. (7) Decreased GFR Current Visit: Yes Status: Acute Assessment and plan: Sending ER labs showed a minimally decreased GFR of 59. Received fluids while at sending ER. Repeat labs ordered. (8) COPD (chronic obstructive pulmonary disease) Current Visit: Yes Status: Chronic Assessment and plan: Not acute exacerbation. Resume home medications once verified. Qualifiers: COPD type: unspecified COPD Qualified Code(s): J44.9 - Chronic obstructive pulmonary disease, unspecified (9) Depression Current Visit: Yes Status: Chronic Assessment and plan: Resume home medications once verified. Qualifiers: Qualified Code(s): F32.9 - Major depressive disorder, single episode, unspecified - Time Spent With Patient Total time spent is greater than 50% in coordination of care (as documented) at patient's floor/unit and/or counseling patient:
[2018-12-23] MEDS ORDERED: D5% in Water 1,000 ML IVC PRN (04:53)
[2018-12-23] MEDS ORDERED: *HR* Dextrose 50 % in Water (Syg) 50 ML SYRINGE IVP PRN (04:53)
[2018-12-23] MEDS ORDERED: Dextrose Gel 15 GM/37.5 ML TUBE PO PRN ×2 (04:53)
[2018-12-23] MEDS: traMADol 50 MG TABLET PO PRN ×2 (05:01→14:26)
[2018-12-23 05:03] LABS: Basophils % 0.3 %; Eosinophils # 0.1 K/mcL (0.0-0.6); Eosinophils % 0.7 %; Hemoglobin 10.7 g/dL (11.5-15.4); Immature Granulocytes % 0.4 % (0-4); Lymphocytes # 1.2 K/mcL (0.6-4.6); Lymphocytes % 10.7 %; Mean Corpuscular HGB Conc 31.5 g/dL (31.6-35.5); Mean Corpuscular Hemoglobin 27.2 pg (28.0-33.3); Mean Corpuscular Volume 86.3 fL (83.0-100.0); Mean Platelet Volume 10.8 fL (9.4-12.4); Monocytes # 1.3 K/mcL (0.0-1.3); Neutrophils # 8.5 K/mcL (1.6-8.9); Platelet Count 229 K/mcL (140-400); Red Blood Count 3.94 M/mcL (3.82-4.97); Red Cell Distribution Width 14.3 % (11.5-14.5); Segmented Neutrophils % 75.9 %; White Blood Count 11.2 K/mcL (4.3-11.1)
[2018-12-23 05:22] LABS: Alanine Aminotransferase 17 Units/L (7-52); Albumin 3.3 g/dL (3.5-5.7); Alkaline Phosphatase 96 Units/L (34-104); Aspartate Amino Transferase 22 Units/L (13-39); BUN/Creatinine Ratio 22 (6-26); Bilirubin,Total 0.8 mg/dL (0.3-1.0); Blood Urea Nitrogen 18 mg/dL (8-23); Calcium 8.5 mg/dL (8.6-10.3); Carbon Dioxide 26 mEq/L (23-29); Chloride 105 mEq/L (98-107); Globulin 3.3 g/dL (2.4-3.5); Glucose 216 mg/dL (70-105); Osmolality,Calculated 294 (280-300); Potassium 3.6 mEq/L (3.5-5.1); Sodium 138 mEq/L (136-145); Total Protein 6.6 g/dL (6.4-8.9); eGFR For African Americans > 60 (> 60); eGFR For Non-African Americans > 60 (> 60)
[2018-12-23] MEDS: Insulin LISPRO 300 UNITS/3 ML VIAL SQ SCH ×3 (08:56→17:24)
[2018-12-23] MEDS: Ketorolac 30 MG/ML VIAL IVP PRN ×2 (09:59→18:03)
--- NOTE | 2018-12-23 12:04 | Event Note ---
Date of Encounter: 12/23/18 Time of Encounter: 09:00 History of physical noted, patient was seen this morning. Patient was diagnosed recently with colon cancer with metastasis to the abdomen was transferred from outside hospital due to right flank pain. Her UA there was concerning for UTI for which urine culture is pending. Oncology is consulted for her end stage colon cancer and repeat Ct abdomen/pelvis was ordered. Her pain in the right rib/flank area and I ordered CTA chest to r/o PE. Will resume her Abx and follow up Cx. LSSI of insulin for her DM. Lovenox for DVT ppx.
[2018-12-23] MEDS ORDERED: Isovue-370 500 ML BOTTLE IVP ONE ×3 (14:11→14:58)
[2018-12-23] MEDS: *HR* Enoxaparin 40 MG/0.4 ML SYRINGE SQ SCH (14:26)
--- NOTE | 2018-12-23 14:55 | Oncology Inp Consult Note ---
Date of Encounter: 12/23/18 Time of Encounter: 14:35 Assessment and Plan (1) Metastatic colon cancer in female Status: Chronic Assessment and plan: She has known K-cam mutated metastatic colon cancer since 2017 and has not been treated for it as she has not followed up [facility] and did not want any chemotherapy. We saw her in consultation today as she was recently seen at [facility] and they recommended chemotherapy and she wants to get it locally at [facility]. We discussed about the extensive nature of disease in her case. We discussed about stage IV colon cancer and the palliative intent of treatment. We discussed the natural history and prognosis of metastatic colon cancer. She has had an indolent course with this cancer and currently remains asymptomatic for the most part except for this new onset right flank pain. We discussed about different treatment options available for colon cancer including single agent chemotherapy with 5-FU, combination chemotherapy with FOLFOX or FOLFIRI and biologic agent Avastin. Even her age, performance status of ECOG 1-2, history of polio I am hesitant to even consider oxaliplatin in her case. She wants to get chemotherapy to keep her disease at control. My recommendation would be to consider dose reduced 5-FU along with Avastin and see how she tolerates it. We discussed in detail that the goal of treatment would be to control her disease and give her a reasonable quality of life. If she were to have any complications from the chemotherapy then I would refrain from treating her further and just manage her disease symptomatically. I recommend obtaining a CT chest abdomen and pelvis with contrast to understand the tumor burden right to considering any treatment. I also recommend obtaining a CEA with labs in the a.m. We will follow up on the imaging and see her again during this hospital stay to continue our discussions about whether she would want to get treated and what would be ideal with all her comorbidities and complications. She will need a follow-up with me 1 week after discharge from hospital. (2) Anemia Status: Acute Assessment and plan: Recommend workup of anemia with iron panel, ferritin, with vitamin B12, folate, LDH, haptoglobin and reticulocyte count. Could be done with her a.m. labs. We will follow up on these results. Qualifiers: Anemia type: unspecified type Qualified Code(s): D64.9 - Anemia, unspecified - Data of Consult Requesting Physician: Amanda Erazo Primary Care Provider: Cindy Nava CNP - Consult Narrative Reason for consult: metastatic colon cancer History of present illness: Mrs. Batista is an 83-year-old female patient with seeing in consultation today for management of her metastatic colon cancer. She has a past medical history of polio, diabetes, schizoaffective disorder, COPD, depression, history of breast cancer 2017 status post lumpectomy and radiation, and history of stroke/TIA 2 years ago. She had been following with Dr. Colby and was last seen in July 2018. She has never had any chemotherapy for her metastatic colon cancer so far. Her oncology history is summarized is below. Oncology history: Initially diagnosed with transverse colon grade 2 adenocarcinoma status post resection on 11/18/[address] Koby Oreilly. Final staging pT3 N2 M0-5 out of 15 lymph nodes were involved. She was recommended adjuvant therapy but she did not want to pursue adjuvant chemotherapy. CT abdomen and pelvis on 05/16/2016 showed a solitary liver lesion in the left lobe measuring 2.5 cm x 2.2 cm. Biopsy of the liver lesion in August 2016 revealed adenocarcinoma of colon origin positive for Ck 20, CDX2 and CEA. Mutational profile of the tumor performed in September 2016 revealed a K-cam mutation and a PI 3 kinase mutation, MSI stable. She was recommended single agent Xeloda for management of her metastatic disease but patient refuses to take chemotherapy and did not show for further appointments. In April 2017 she underwent microwave ablation of her left liver lobe lesion. She was lost to follow-up after that. She was admitted at [facility] in June [address] abdomen and pelvis showed more extensive disease in her abdomen-recurrence at the local site, liver and peritoneal and abdominal nodules. She was seen again in July 2018 at the [facility] a PET CT was obtained. PET scan on 2019 with contrast showed progression of metastatic cyst compared to PET scan in September 2016. Several omental metastasis, greater curvature of the stomach 3 x 6 x 2.6 cm with SUV of 29 adjuvant metastases near the gastric antrum SUV of 19, and at the omental lesion 2.4 x 1.1 cm SUV 13.4 muscle. Left hepatic lobe 2.4 x 2.1 cm, inferior to this 4.8 x 5.6 metastasis, new subcapsular area SUV 13 size 1.6 x 1.2 cm, right hepatic subcapsular metastases 1.6 x 1.2 cm SUV 4.5 increased from before and the rectus abdominis muscle mass 4.7 x 4.1 cm with SUV of 18. She was recommended palliative chemotherapy with cell Snyder Avastin with a plan to start in the end of July 2018. She did not pursue further treatment and she went to [facility] for second opinion. She was seen by Dr. Ponce at [facility] on November. He recommended FOLFOX every 3 weeks. She was planning to get her treatments at the [facility] but she has not seen anyone since her last visit in July 2018. Past Med Surg Social Fam HX - Past Medical History Medical history: atrial fibrillation, cancer, COPD, CVA, diabetes, hyperlipidemia, hypertension Additional medical history: polio Psychiatric history: depression - Past Surgical History Surgical History: hysterectomy, knee replacement Additional surgical history: lumpectomy rt breast, ankle surgery-rt, left eye surgery, - Social History Smoking Status: Former smoker Smokeless Tobacco Status: No Alcohol use: none Drug use: none Medications and Allergies Atorvastatin [Lipitor] 40 mg PO HS 09/17/16 [History] Carvedilol [Coreg] 6.25 mg PO BIDWM 09/17/16 [History] Meclizine [Antivert] 12.5 mg PO TID 09/17/16 [History] OLANZapine [Zyprexa] 5 mg PO HS 09/17/16 [History] Sertraline [Zoloft] 100 mg PO DAILY 09/17/16 [History] Exenatide Microspheres [Bydureon Pen] 2 mg SQ AD 05/14/17 [History] Lisinopril [Zestril] 20 mg PO DAILY 05/14/17 [History] Oxygen 2 l IH HS 06/14/17 [History] Amlodipine Besylate 5 mg PO DAILY 12/23/18 [History] Metformin HCl 500 mg PO BID 12/23/18 [History] Omeprazole 20 mg PO DAILY 12/23/18 [History] Solifenacin Succinate 10 mg PO DAILY 12/23/18 [History] Allergy/AdvReac Type Severity Reaction Status Date / Time Penicillins Allergy Rash Verified 08/01/18 13:55 Review of systems: Constitutional: no fever, chills, nightsweats. no recent unintentional changes in weight HEENT: no lumps or bumps in the neck. no symptoms of sinus congestion or epistaxis. CVS: no chest pain, SOB, palpitations, diziness. RS: no cough, SOB, wheezing, sputum production ABD: no nausea, vomiting, diarrhea, occasional constipation, no abd pain. no blood in stool. she has right sided flank pain. SAILBOAT CAPTAIN: alert and oriented, no headache. no focal weakness or sensory disturbances. : no blood in urine, no dysuria SKIN- no rash or lesions musculoskeletal- has bilateral leg weakness and difficulty with ambulation Oncology - Exam - Constitutional Exam: CONSTITUTIONAL: Alert,oriented, well appearing, age appropriate HEENT Sclerae anicteric. No mucositis or thrush, Pharynx normal. HEART: Regular rhythm and normal rate. No gallops, murmurs or rubs. LUNGS: Clear to auscultation bilaterally. ABDOMEN: Soft, nontender, nondistended, no organomegaly or masses palpable. Bowel sounds present. EXTREMITIES: No edema. No calf swelling or tenderness SKIN: No rashes or petechiae. Warm to touch. NEUROLOGIC: Alert,oriented x 3,has polio related weakness in her legs PSYCH: Affect appropriate for circumstances. LYMPH NODES: No cervical, supraclavicular or axillary adenopathy . Oncology Inpatient Results Labs: Short CBC 12/23/18 Range/Units 04:48 WBC 11.2 H (4.3-11.1) K/mcL Hgb 10.7 L (11.5-15.4) g/dL Hct 34.0 L (35.3-44.9) % Plt Count 229 (140-400) K/mcL Neutrophils # 8.5 (1.6-8.9) K/mcL BMP 12/23/18 Range/Units 04:48 Sodium 138 (136-145) mEq/L Potassium 3.6 (3.5-5.1) mEq/L Chloride 105 (98-107) mEq/L Carbon Dioxide 26 (23-29) mEq/L BUN 18 (8-23) mg/dL Creatinine 0.81 (0.60-1.20) mg/dL Glucose 216 H (70-105) mg/dL Calcium 8.5 L (8.6-10.3) mg/dL Liver Function 12/23/18 Range/Units 04:48 Total Bilirubin 0.8 (0.3-1.0) mg/dL AST 22 (13-39) Units/L ALT 17 (7-52) Units/L Alkaline Phosphatase 96 (34-104) Units/L Albumin 3.3 L (3.5-5.7) g/dL Consult Discharge Plan - Plan Referrals: Cindy Nava, BRICK CATCHER [Primary Care Provider] - Inpatient Charges Provider: Dr. iGni Vera Consult - Inpatient: [id number]
[2018-12-23 15:57] LABS: % Iron Saturation 5 % (15-50); Iron 17 mcg/dL (50-170); Lactate Dehydrogenase 246 Units/L (140-271); Transferrin 240 mg/dL (203-362)
[2018-12-23 16:17] LABS: Ferritin 122 ng/mL (10-120)
[2018-12-23 16:22] LABS: Folate > 22.3 ng/mL (3.0-16.0); Vitamin B12 355 pg/mL (250-1100)
[2018-12-23] MEDS ORDERED: cefTRIAXone 1,000 MG in Water for inj. (sterile) 10 ML IVP SCH (18:00)
[2018-12-23] MEDS: Budesonide/Formoterol 160/4.5 1 PUFF INH IH SCH (20:27)
[2018-12-23] MEDS ORDERED: Insulin LISPRO 300 UNITS/3 ML VIAL SQ SCH (21:00)
[2018-12-23] MEDS ORDERED: OLANZapine 5 MG TAB.RAPDIS PO SCH (21:00)
[2018-12-23 21:03] LABS: Bilirubin,Urine Negative (Negative); Blood,Urine Negative (Negative); Clarity,Urine Clear (Clear); Color,Urine Yellow (Yellow); Glucose,Urine (UA) Normal (Normal); Ketones,Urine Negative (Negative); Leukocyte Esterase,Urine Small (Negative); Nitrite,Urine Negative (Negative); PH,Urine 5.5 pH Units (5.0-8.0); Protein,Urine Trace mg/dL (Neg-Trace); Specific Gravity,Urine > 1.030 (1.010-1.025); Urobilinogen,Urine Normal (Normal)
[2018-12-23 21:04] LABS: Bacteria,Urine None Seen per hpf (None-Few); RBC,Urine 0-3 per hpf (0-3); Squamous Epithelial Cell,Urine Many per lpf (None-Few); WBC,Urine 50-100 per hpf (0-3)
[2018-12-23 21:24] LABS: Hyaline Casts,Urine None Seen per lpf (None-Few)
[2018-12-24 05:57] LABS: Hematocrit 33.9 % (35.3-44.9); Hemoglobin 10.4 g/dL (11.5-15.4); Mean Corpuscular HGB Conc 30.7 g/dL (31.6-35.5); Mean Corpuscular Hemoglobin 27.1 pg (28.0-33.3); Mean Corpuscular Volume 88.3 fL (83.0-100.0); Mean Platelet Volume 11.4 fL (9.4-12.4); Platelet Count 231 K/mcL (140-400); Red Blood Count 3.84 M/mcL (3.82-4.97); Red Cell Distribution Width 14.3 % (11.5-14.5); White Blood Count 8.9 K/mcL (4.3-11.1)
[2018-12-24] MEDS: *HR* Enoxaparin 40 MG/0.4 ML SYRINGE SQ SCH (06:02)
[2018-12-24 06:18] LABS: BUN/Creatinine Ratio 23 (6-26); Blood Urea Nitrogen 21 mg/dL (8-23); Calcium 8.6 mg/dL (8.6-10.3); Carbon Dioxide 27 mEq/L (23-29); Chloride 105 mEq/L (98-107); Glucose 137 mg/dL (70-105); Osmolality,Calculated 289 (280-300); Sodium 137 mEq/L (136-145); eGFR For African Americans > 60 (> 60); eGFR For Non-African Americans 59 (> 60)
[2018-12-24] MEDS: Budesonide/Formoterol 160/4.5 1 PUFF INH IH SCH (07:40)
[2018-12-24] MEDS: Insulin LISPRO 300 UNITS/3 ML VIAL SQ SCH ×2 (07:56→11:51)
[2018-12-24] MEDS ORDERED: NON-FORMULARY MEDICATION 1 EACH EACH (Fluticasone/Vilanterol [Breo Ellipta 100-25 Mcg Inh] IH SCH (09:00)
[2018-12-24] MEDS: traMADol 50 MG TABLET PO PRN (10:19)
[2018-12-24 10:45] VITALS: BP 138/76
--- NOTE | 2018-12-24 12:09 | Discharge Summary ---
- NOTES TO OUTPATIENT PROVIDER Notes to Outpatient Provider: Patient was related to follow with oncology as outpatient within a week for further discussion given the progression of her colon cancer. Orders not resulted at time of discharge: Pending orders 12/23/18 04:48 Culture,Blood [BC] Stat 12/23/18 15:26 Haptoglobin Routine 12/23/18 20:55 Culture,Urine [RM] Stat Date of Encounter: 12/24/18 Time of Encounter: 12:15 - Discharge Diagnosis (1) Urinary tract infection Priority: Primary Status: Acute Qualifiers: Qualified Code(s): N39.0 - Urinary tract infection, site not specified (2) Metastatic colon cancer in female Priority: Primary Status: Chronic (3) Increased white blood cell count Priority: Primary Status: Acute Qualifiers: Leukocytosis type: unspecified Qualified Code(s): D72.829 - Elevated white blood cell count, unspecified (4) Decreased hemoglobin Priority: Secondary Status: Acute (5) COPD (chronic obstructive pulmonary disease) Priority: Secondary Status: Chronic Qualifiers: COPD type: unspecified COPD Qualified Code(s): J44.9 - Chronic obstructive pulmonary disease, unspecified (6) Depression Priority: Secondary Status: Chronic Qualifiers: Qualified Code(s): F32.9 - Major depressive disorder, single episode, unspecified (7) Right flank pain Priority: Primary Status: Chronic Hospital course: Ms. Batista is a 83 year old female with past medical history of atrial fibrillation, COPD, CVA, diabetes, metastatic colon cancer was transferred from [facility]. Patient had UA with signs of UTI and abnormal CT findings. Patient wanted to follow with [facility] hence she was transferred. Patient was started on empiric antibiotics for UTI. Patient had minimal elevated white count which improved urine culture did not grow any organism blood cultures remain negative. Patient without any fevers. Right flank pain resolved. Patient had a CTA and abdominal pelvis CT which showed no PE, progression of liver metastasis, peritoneal carcinomatosis and omental metastasis, colonic mass at anastomosis increased in size, signs of cystitis. Patient was feeling well and did not complain of abdominal pain and wanted to go home. Discussed case with oncology who is okay for her to follow-up within a week to further discuss treatment options given her comorbidities. Patient within a short course of a ntibiotics for UTI. Discharge discussed with: patient, nurse, plan consultant - Time Spent with Patient Total time spent providing and/or coordinating discharge services: Time spent: Greater than 30 minutes (40) - Discharge Medications Prescriptions: New Cefdinir [Omnicef] 300 mg PO BID 2 Days #4 capsule Continued Sertraline [Zoloft] 100 mg PO DAILY OLANZapine [Zyprexa] 5 mg PO HS Meclizine [Antivert] 12.5 mg PO TID Carvedilol [Coreg] 6.25 mg PO BIDWM Atorvastatin [Lipitor] 40 mg PO HS Lisinopril [Zestril] 20 mg PO DAILY Exenatide Microspheres [Bydureon Pen] 2 mg SQ AD Oxygen 2 l IH HS Amlodipine Besylate 5 mg PO DAILY Metformin HCl 500 mg PO BID Omeprazole 20 mg PO DAILY Solifenacin Succinate 10 mg PO DAILY Home Medications: Atorvastatin [Lipitor] 40 mg PO HS 09/17/16 [History] Carvedilol [Coreg] 6.25 mg PO BIDWM 09/17/16 [History] Meclizine [Antivert] 12.5 mg PO TID 09/17/16 [History] OLANZapine [Zyprexa] 5 mg PO HS 09/17/16 [History] Sertraline [Zoloft] 100 mg PO DAILY 09/17/16 [History] Exenatide Microspheres [Bydureon Pen] 2 mg SQ AD 05/14/17 [History] Lisinopril [Zestril] 20 mg PO DAILY 05/14/17 [History] Oxygen 2 l IH HS 06/14/17 [History] Amlodipine Besylate 5 mg PO DAILY 12/23/18 [History] Metformin HCl 500 mg PO BID 12/23/18 [History] Omeprazole 20 mg PO DAILY 12/23/18 [History] Solifenacin Succinate 10 mg PO DAILY 12/23/18 [History] Cefdinir [Omnicef] 300 mg PO BID 2 Days #4 capsule 12/24/18 [Rx] Allergies/Adverse Reactions: Allergy/AdvReac Type Severity Reaction Status Date / Time Penicillins Allergy Rash Verified 08/01/18 13:55 Date of admission: 12/22/18 23:45 Primary care physician: Cindy Nava CNP Consults: 12/23/18 04:16 Consult to Oncology [CONS] Routine Consulting Provider: [facility] Reason for Consult: Transferred from [facility] for right flank pain with abnormal Ct Abdomen/Pelvis. Patient with known colon cancer with metastasis to the abdomen. WAs previously being followed by [facility] earlier this year then started following with [facility]. Would now like to start following with [facility] again to receive care closer to home. Call Completed: No Discharging clinician: Lilibeth Curtis - Constitutional Vitals: Temp Pulse Resp BP Pulse Ox 98.8 F 85 15 138/76 93 12/24/18 10:43 12/24/18 10:43 12/24/18 10:43 12/24/18 10:43 12/24/18 10:43 Exam: General: In no acute distress. Respiratory exam: CTAB. no accessory muscle use, rales, rhonchi, wheezes Cardiovascular exam: RRR, +S1, +S2. no murmur, gallop, rubs. GI/Abdominal exam: Non-tender, Non-distended, normal bowel sounds, soft, no peritoneal signs. Extremities exam: no pedal edema, pulses palpable in b/l lower extremities. no calf tenderness Neurological exam: CN II-XII intact, AO X3, no focal deficits. Skin exam: No skin rash - Patient Status Disposition: Home Health Service Condition: Fair - Discharge Instructions Follow Up With: Cindy Nava CNP [Primary Care Provider] - Brigitte Vera MD [Partnered Physician] - - Diet and Activity Activity: increase activity as tolerated
--- NOTE | 2018-12-24 12:56 | Physician Discharge Referral ---
Home Health/Hosp Referral Info Transfer to: Home Health - Diagnosis (1) Urinary tract infection Status: Acute (2) Metastatic colon cancer in female Status: Chronic (3) Increased white blood cell count Status: Acute (4) Decreased hemoglobin Status: Acute (5) COPD (chronic obstructive pulmonary disease) Status: Chronic (6) Depression Status: Chronic (7) Right flank pain Status: Chronic - Respiratory Orders Smoking Cessation: Smoking cessation has been advised. For more information, call the [place] Tobacco Quit Line at 1-018-ZOXM-NOW. - Services Needed Following services are medically necessary services: Nursing, Home Health Aide, Physical Therapy, Occupational Therapy - Transfer Medications Prescriptions: Cefdinir [Omnicef] 300 mg PO BID 2 Days #4 capsule Home Medications: Atorvastatin [Lipitor] 40 mg PO HS 09/17/16 [History] Carvedilol [Coreg] 6.25 mg PO BIDWM 09/17/16 [History] Meclizine [Antivert] 12.5 mg PO TID 09/17/16 [History] OLANZapine [Zyprexa] 5 mg PO HS 09/17/16 [History] Sertraline [Zoloft] 100 mg PO DAILY 09/17/16 [History] Exenatide Microspheres [Bydureon Pen] 2 mg SQ AD 05/14/17 [History] Lisinopril [Zestril] 20 mg PO DAILY 05/14/17 [History] Oxygen 2 l IH HS 06/14/17 [History] Amlodipine Besylate 5 mg PO DAILY 12/23/18 [History] Metformin HCl 500 mg PO BID 12/23/18 [History] Omeprazole 20 mg PO DAILY 12/23/18 [History] Solifenacin Succinate 10 mg PO DAILY 12/23/18 [History] Cefdinir [Omnicef] 300 mg PO BID 2 Days #4 capsule 12/24/18 [Rx] Allergies/Adverse Reactions: Allergy/AdvReac Type Severity Reaction Status Date / Time Penicillins Allergy Rash Verified 08/01/18 13:55 Certification: Further, I certify that my clinical findings support that this patient is homebound (i.e. absences from home require considerable and taxing effort and are for medical reasons or yazidi services or infrequently or short duration when for other reasons) because: Homebound Reason: Patient requires assistance of a person or device to safely leave home Attestation: My signature below is to certify that this patient is under my care and that I, or nurse practitioner, or a physician's assistant professor of dietetics working with me, has a [id number] encounter with this patient.
[2018-12-24] MEDS ORDERED: traMADol 50 MG TABLET PO PRN (14:14)
== END 2018-12-24 15:43 | disposition home health service (06) ==
LOC: 3ANU → SUATTDRO 23:45
PROVIDERS: ADMIT Student in an Organized Health Care Education/Training Program; ATTEND Internal Medicine

== ENCOUNTER 2019-01-23 08:37 | Observation (INO) ==
[2019-01-23] MEDS ORDERED: FLU Vac QV 19-20 (6Month+)/PF 0.5 ML SYRINGE IM ONE (10:59)
[2019-01-23] MEDS ORDERED: Acetaminophen 325 MG TABLET PO PRN (11:40)
[2019-01-23] MEDS ORDERED: Ondansetron ODT 4 MG TAB.RAPDIS SL PRN (11:40)
[2019-01-23] MEDS ORDERED: MOM Conc 10 ML UD.LIQ PO PRN (11:40)
[2019-01-23] MEDS ORDERED: Mag Hydrox/Al Hydrox/Simeth 30 ML UDC PO PRN (11:40)
[2019-01-23] MEDS ORDERED: Naloxone 0.4 MG/ML INJ IVP PRN (11:40)
[2019-01-23] MEDS ORDERED: *HR* OxyCODONE Immed Rel 5 MG TABLET PO PRN (11:40)
[2019-01-23] MEDS: *HR* HYDROcodone/Acet 5/325 mg TABLET PO PRN (13:22)
[2019-01-23] MEDS ORDERED: D5% in Water 1,000 ML IVC PRN (16:39)
[2019-01-23] MEDS ORDERED: Dextrose Gel 15 GM/37.5 ML TUBE PO PRN ×2 (16:39)
[2019-01-23] MEDS ORDERED: *HR* Dextrose 50 % in Water (Syg) 50 ML SYRINGE IVP PRN (16:39)
[2019-01-23] MEDS: Insulin DETEMIR 100 UNIT/ML X5UNITS SQ SCH (17:41)
[2019-01-23] MEDS ORDERED: OLANZapine 5 MG TAB.RAPDIS PO SCH (21:00)
[2019-01-23] MEDS ORDERED: NON-FORMULARY MEDICATION 1 EACH EACH (Oxygen 2 L) IH SCH (21:00)
[2019-01-23] MEDS ORDERED: Insulin LISPRO 300 UNITS/3 ML VIAL SQ SCH (21:00)
[2019-01-24] MEDS: Insulin LISPRO 300 UNITS/3 ML VIAL SQ SCH ×3 (07:54→16:54)
[2019-01-24] MEDS ORDERED: amLODIPine 5 MG TABLET PO SCH (09:00)
[2019-01-24] MEDS ORDERED: Lisinopril 20 MG TABLET PO SCH (09:00)
[2019-01-24] MEDS ORDERED: Aspirin Enteric Coated 81 MG Tablet PO SCH (09:00)
[2019-01-24] MEDS ORDERED: (Fluticasone/Vilanterol [Breo Ellipta 100-25 Mcg Inh]) PO SCH (09:00)
[2019-01-24] MEDS: *HR* HYDROcodone/Acet 5/325 mg TABLET PO PRN (09:04)
[2019-01-24] MEDS: Insulin DETEMIR 100 UNIT/ML X5UNITS SQ SCH (09:10)
[2019-01-24 10:46] LABS: Hematocrit 30.8 % (35.3-44.9); Hemoglobin 9.5 g/dL (11.5-15.4); Mean Corpuscular HGB Conc 30.8 g/dL (31.6-35.5); Mean Corpuscular Hemoglobin 26.4 pg (28.0-33.3); Mean Corpuscular Volume 85.6 fL (83.0-100.0); Mean Platelet Volume 11.2 fL (9.4-12.4); Platelet Count 287 K/mcL (140-400); Red Cell Distribution Width 14.6 % (11.5-14.5); White Blood Count 9.9 K/mcL (4.3-11.1)
[2019-01-24 10:53] LABS: INR 1.2; Prothrombin Time 13.9 Seconds (9.4-12.1)
[2019-01-24 11:05] LABS: Alanine Aminotransferase 13 Units/L (7-52); Albumin 2.9 g/dL (3.5-5.7); Alkaline Phosphatase 86 Units/L (34-104); Aspartate Amino Transferase 16 Units/L (13-39); BUN/Creatinine Ratio 15 (6-26); Bilirubin,Total 0.6 mg/dL (0.3-1.0); Blood Urea Nitrogen 13 mg/dL (8-23); Calcium 8.4 mg/dL (8.6-10.3); Carbon Dioxide 28 mEq/L (23-29); Chloride 101 mEq/L (98-107); Globulin 2.9 g/dL (2.4-3.5); Glucose 254 mg/dL (70-105); Magnesium 1.6 mg/dL (1.6-2.6); Osmolality,Calculated 289 (280-300); Potassium 4.1 mEq/L (3.5-5.1); Sodium 135 mEq/L (136-145); Total Protein 5.8 g/dL (6.4-8.9); eGFR For African Americans > 60 (> 60); eGFR For Non-African Americans > 60 (> 60)
[2019-01-24 17:33] VITALS: BP 111/70
[2019-01-24] MEDS ORDERED: Budesonide/Formoterol 80/4.5 1 PUFF INH IH SCH (22:00)
== END 2019-01-24 21:47 | disposition home or self-care (01) ==
LOC: 3ANU → SUATTDRO 10:31
PROVIDERS: ADMIT Internal Medicine; ATTEND Internal Medicine

== ENCOUNTER 2019-12-03 14:55 | Inpatient (IN) ==
[2019-12-03] MEDS ORDERED: Isovue-370 500 ML BOTTLE IVP ONE ×2 (15:08→16:25)
[2019-12-03] MEDS ORDERED: Ipratropium/Albuterol Neb 3 ML IH ONE (15:10)
[2019-12-03] MEDS ORDERED: Acetaminophen 325 MG TABLET PO ONE (15:32)
[2019-12-03 16:07] LABS: Basophils # 0.1 K/mcL (0.0-0.2); Basophils % 0.6 %; Eosinophils # 0.3 K/mcL (0.0-0.6); Eosinophils % 2.1 %; Hematocrit 23.8 % (35.3-44.9); Immature Granulocytes % 0.6 % (0-4); Lymphocytes # 1.9 K/mcL (0.6-4.6); Lymphocytes % 16.1 %; Mean Corpuscular HGB Conc 29.4 g/dL (31.6-35.5); Mean Corpuscular Hemoglobin 23.4 pg (28.0-33.3); Mean Corpuscular Volume 79.6 fL (83.0-100.0); Mean Platelet Volume 9.7 fL (9.4-12.4); Monocytes % 8.4 %; Neutrophils # 8.6 K/mcL (1.6-8.9); Platelet Count 701 K/mcL (140-400); Red Blood Count 2.99 M/mcL (3.82-4.97); Red Cell Distribution Width 20.4 % (11.5-14.5); Segmented Neutrophils % 72.2 %; White Blood Count 11.9 K/mcL (4.3-11.1)
[2019-12-03 16:12] LABS: VBG HCO3 26 mEq/L (21-27); VBG PCO2 35 mmHg (41-51); VBG PH 7.48 pH Units (7.32-7.42); VBG PO2 101 mmHg (25-50)
[2019-12-03 16:19] LABS: ABG Base Excess 3 mEq/L (-2 to 3); ABG HCO3 27 mEq/L (21-27); ABG Oxygen Saturation 83 % (95-98); ABG PCO2 39 mmHg (35-45); ABG PH 7.46 pH Units (7.32-7.45); ABG PO2 45 mmHg (85-104); ABG TCO2 29 mEq/L (20-26); Blood Gas Modality CPAP
[2019-12-03 16:29] LABS: Alanine Aminotransferase 16 Units/L (7-52); Albumin 3.1 g/dL (3.5-5.7); Albumin/Globulin Ratio 0.8 (1.1-2.2); Alkaline Phosphatase 122 Units/L (34-104); Aspartate Amino Transferase 31 Units/L (13-39); BUN/Creatinine Ratio 52 (6-26); Bilirubin,Total 0.4 mg/dL (0.3-1.0); Blood Urea Nitrogen 28 mg/dL (8-23); Calcium 9.1 mg/dL (8.6-10.3); Carbon Dioxide 25 mEq/L (23-29); Chloride 101 mEq/L (98-107); Globulin 3.8 g/dL (2.4-3.5); Glucose 115 mg/dL (70-105); Osmolality,Calculated 286 (280-300); Potassium 4.5 mEq/L (3.5-5.1); Sodium 135 mEq/L (136-145); Total Protein 6.9 g/dL (6.4-8.9); Troponin I < 0.03 ng/mL (< 0.04); eGFR For African Americans > 60 (> 60); eGFR For Non-African Americans > 60 (> 60)
[2019-12-03 17:53] LABS: Adenovirus Not Detected (Not Detect); Coronavirus 229E Not Detected (Not Detect); Coronavirus HKU1 Not Detected (Not Detect); Coronavirus NL63 Not Detected (Not Detect); Coronavirus OC43 Not Detected (Not Detect)
[2019-12-03 17:54] LABS: Bordetella Pertussis Not Detected (Not Detect); Chlamydophila pneumoniae Not Detected (Not Detect); Human Metapneumovirus Not Detected (Not Detect); Human Rhinovirus/Enterovirus Not Detected (Not Detect); Influenza A Subtype 2009 H1 Not Detected (Not Detect); Influenza B Not Detected (Not Detect); Mycoplasma pneumoniae Not Detected (Not Detect); Parainfluenza Virus 1 Not Detected (Not Detect); Parainfluenza Virus 2 Not Detected (Not Detect); Parainfluenza Virus 3 Not Detected (Not Detect); Parainfluenza Virus 4 Not Detected (Not Detect); Respiratory Syncytial Virus Not Detected (Not Detect); SARS-CoV-2 Not Detected (Not Detect)
[2019-12-03] MEDS ORDERED: 0.9 % Sodium Chloride 500 ML ONE (18:32)
[2019-12-03] MEDS ORDERED: Ondansetron 4 MG/2 ML VIAL IVP PRN (20:08)
[2019-12-03] MEDS ORDERED: Naloxone 0.4 MG/ML INJ IVP PRN (20:08)
[2019-12-03] MEDS ORDERED: D5% in Water 1,000 ML IVC PRN (21:13)
[2019-12-03] MEDS ORDERED: *HR* Dextrose 50 % in Water (Vial) 50 ML VIAL IVP PRN (21:13)
[2019-12-03] MEDS ORDERED: Dextrose Gel 15 GM/37.5 ML TUBE PO PRN ×2 (21:13)
[2019-12-03] MEDS ORDERED: Iron Sucrose Complex 400 MG in 0.9 % Sodium Chloride 250 ML IVPB ONE (21:23)
[2019-12-03] MEDS: Albuterol 2.5 MG/3 ML NEBULIZER IH SCH ×2 (22:00→23:08)
[2019-12-04] MEDS ORDERED: MethylPREDNISolone 40 MG/ML VIAL IVP SCH
[2019-12-04 00:29] LABS: VBG HCO3 26 mEq/L (21-27); VBG PCO2 39 mmHg (41-51); VBG PH 7.43 pH Units (7.32-7.42); VBG PO2 159 mmHg (25-50)
[2019-12-04 00:35] LABS: Hematocrit 24.2 % (35.3-44.9); Hemoglobin 7.1 g/dL (11.5-15.4)
[2019-12-04 00:44] LABS: BUN/Creatinine Ratio 56 (6-26); Blood Urea Nitrogen 29 mg/dL (8-23); Calcium 8.6 mg/dL (8.6-10.3); Carbon Dioxide 23 mEq/L (23-29); Chloride 103 mEq/L (98-107); Glucose 88 mg/dL (70-105); Osmolality,Calculated 287 (280-300); Potassium 4.2 mEq/L (3.5-5.1); Sodium 136 mEq/L (136-145); eGFR For African Americans > 60 (> 60); eGFR For Non-African Americans > 60 (> 60)
[2019-12-04 01:10] LABS: Folate 21.1 ng/mL (3.0-16.0)
[2019-12-04] MEDS: Albuterol 2.5 MG/3 ML NEBULIZER IH SCH ×5 (03:29→20:32)
[2019-12-04 07:07] LABS: Basophils % 0.4 %; Eosinophils # 0.3 K/mcL (0.0-0.6); Eosinophils % 2.4 %; Hematocrit 24.1 % (35.3-44.9); Immature Granulocytes % 0.5 % (0-4); Lymphocytes # 1.2 K/mcL (0.6-4.6); Lymphocytes % 11.1 %; Mean Corpuscular Hemoglobin 23.8 pg (28.0-33.3); Mean Platelet Volume 9.8 fL (9.4-12.4); Monocytes # 1.1 K/mcL (0.0-1.3); Monocytes % 9.6 %; Neutrophils # 8.4 K/mcL (1.6-8.9); Platelet Count 522 K/mcL (140-400); Red Blood Count 2.94 M/mcL (3.82-4.97); Red Cell Distribution Width 19.5 % (11.5-14.5); White Blood Count 11.1 K/mcL (4.3-11.1)
[2019-12-04 07:27] LABS: % Iron Saturation 116 % (15-50); Iron 344 mcg/dL (50-170); Transferrin 212 mg/dL (203-362)
[2019-12-04 07:45] LABS: Ferritin 93 ng/mL (10-120)
[2019-12-04] MEDS: Insulin LISPRO 300 UNITS/3 ML VIAL SQ SCH ×3 (08:11→17:09)
[2019-12-04] MEDS: Pantoprazole 40 MG VIAL IVP SCH (09:09)
[2019-12-04] MEDS: Cyanocobalamin (B-12) 1,000 MCG TABLET PO SCH (12:11)
[2019-12-04] MEDS: *HR* HYDROcodone/Acet 5/325 mg TABLET PO PRN ×2 (12:11→21:23)
[2019-12-04] MEDS ORDERED: Perflutren Lipid Microsphere 1.3 ML in 0.9 % Sodium Chloride 8.7 ML IVP PRN (13:59)
[2019-12-04 14:32] LABS: Hematocrit 24.9 % (35.3-44.9); Hemoglobin 7.4 g/dL (11.5-15.4)
[2019-12-04] MEDS ORDERED: Ibuprofen 400 MG TABLET PO PRN (17:21)
[2019-12-04 19:31] LABS: Hematocrit 23.6 % (35.3-44.9)
[2019-12-04] MEDS: OLANZapine 5 MG TAB.RAPDIS PO SCH (21:17)
[2019-12-04] MEDS: *HR* LORazepam 0.5 MG TABLET PO PRN (21:18)
[2019-12-05] MEDS: Albuterol 2.5 MG/3 ML NEBULIZER IH SCH ×7 (00:16→23:43)
[2019-12-05 06:48] LABS: Hematocrit 23.1 % (35.3-44.9); Hemoglobin 6.7 g/dL (11.5-15.4); Mean Corpuscular Hemoglobin 23.8 pg (28.0-33.3); Mean Corpuscular Volume 81.9 fL (83.0-100.0); Mean Platelet Volume 9.6 fL (9.4-12.4); Platelet Count 480 K/mcL (140-400); Red Blood Count 2.82 M/mcL (3.82-4.97); Red Cell Distribution Width 19.7 % (11.5-14.5); White Blood Count 9.6 K/mcL (4.3-11.1)
[2019-12-05] MEDS ORDERED: 0.9 % Sodium Chloride 250 ML IVC SCH (07:00)
[2019-12-05 07:06] LABS: BUN/Creatinine Ratio 45 (6-26); Blood Urea Nitrogen 19 mg/dL (8-23); Carbon Dioxide 27 mEq/L (23-29); Chloride 103 mEq/L (98-107); Glucose 89 mg/dL (70-105); Osmolality,Calculated 288 (280-300); Potassium 3.8 mEq/L (3.5-5.1); Sodium 138 mEq/L (136-145); eGFR For African Americans > 60 (> 60); eGFR For Non-African Americans > 60 (> 60)
[2019-12-05] MEDS: Aspirin Enteric Coated 81 MG Tablet PO SCH (07:59)
[2019-12-05] MEDS: amLODIPine 5 MG TABLET PO SCH (07:59)
[2019-12-05] MEDS: lisinopriL 20 MG TABLET PO SCH (07:59)
[2019-12-05] MEDS: Pantoprazole 40 MG VIAL IVP SCH (08:00)
[2019-12-05] MEDS: carvediloL 6.25 MG TABLET PO SCH ×2 (08:00→16:29)
[2019-12-05] MEDS: Cyanocobalamin (B-12) 1,000 MCG TABLET PO SCH (08:00)
[2019-12-05] MEDS: polyethylene glycoL 3350 17 GM POWD.PACK PO SCH (08:22)
[2019-12-05] MEDS: Insulin LISPRO 300 UNITS/3 ML VIAL SQ SCH ×3 (08:24→16:31)
[2019-12-05 17:28] LABS: Hematocrit 26.8 % (35.3-44.9)
[2019-12-05] MEDS: OLANZapine 5 MG TAB.RAPDIS PO SCH (19:42)
[2019-12-06 02:16] LABS: Hematocrit 25.1 % (35.3-44.9); Hemoglobin 7.5 g/dL (11.5-15.4); Mean Corpuscular HGB Conc 29.9 g/dL (31.6-35.5); Mean Corpuscular Hemoglobin 24.1 pg (28.0-33.3); Mean Corpuscular Volume 80.7 fL (83.0-100.0); Mean Platelet Volume 9.8 fL (9.4-12.4); Platelet Count 487 K/mcL (140-400); Red Blood Count 3.11 M/mcL (3.82-4.97); Red Cell Distribution Width 23.5 % (11.5-14.5); White Blood Count 10.4 K/mcL (4.3-11.1)
[2019-12-06] MEDS: Albuterol 2.5 MG/3 ML NEBULIZER IH SCH ×6 (03:39→23:40)
[2019-12-06] MEDS: Insulin LISPRO 300 UNITS/3 ML VIAL SQ SCH ×3 (08:42→16:28)
[2019-12-06] MEDS: Pantoprazole 40 MG VIAL IVP SCH (08:43)
[2019-12-06] MEDS: Aspirin Enteric Coated 81 MG Tablet PO SCH (08:43)
[2019-12-06] MEDS: polyethylene glycoL 3350 17 GM POWD.PACK PO SCH (08:43)
[2019-12-06] MEDS: lisinopriL 20 MG TABLET PO SCH (08:43)
[2019-12-06] MEDS: Cyanocobalamin (B-12) 1,000 MCG TABLET PO SCH (08:43)
[2019-12-06] MEDS: amLODIPine 5 MG TABLET PO SCH (08:44)
[2019-12-06] MEDS: carvediloL 6.25 MG TABLET PO SCH ×2 (08:44→16:28)
[2019-12-06] MEDS: *HR* HYDROcodone/Acet 5/325 mg TABLET PO PRN ×2 (11:35→23:21)
[2019-12-06] MEDS: OLANZapine 5 MG TAB.RAPDIS PO SCH (23:22)
[2019-12-07 02:29] LABS: Hematocrit 24.8 % (35.3-44.9); Hemoglobin 7.4 g/dL (11.5-15.4); Mean Corpuscular HGB Conc 29.8 g/dL (31.6-35.5); Mean Corpuscular Hemoglobin 23.6 pg (28.0-33.3); Mean Corpuscular Volume 79.2 fL (83.0-100.0); Platelet Count 477 K/mcL (140-400); Red Blood Count 3.13 M/mcL (3.82-4.97); Red Cell Distribution Width 23.8 % (11.5-14.5); White Blood Count 9.6 K/mcL (4.3-11.1)
[2019-12-07] MEDS: Albuterol 2.5 MG/3 ML NEBULIZER IH SCH ×2 (03:54→07:31)
[2019-12-07] MEDS: Insulin LISPRO 300 UNITS/3 ML VIAL SQ SCH ×3 (08:25→17:21)
[2019-12-07] MEDS: Pantoprazole 40 MG VIAL IVP SCH (08:26)
[2019-12-07] MEDS: amLODIPine 5 MG TABLET PO SCH (08:27)
[2019-12-07] MEDS: polyethylene glycoL 3350 17 GM POWD.PACK PO SCH (08:27)
[2019-12-07] MEDS: Aspirin Enteric Coated 81 MG Tablet PO SCH (08:27)
[2019-12-07] MEDS: carvediloL 6.25 MG TABLET PO SCH ×2 (08:27→17:21)
[2019-12-07] MEDS: lisinopriL 20 MG TABLET PO SCH (08:27)
[2019-12-07] MEDS: Cyanocobalamin (B-12) 1,000 MCG TABLET PO SCH (08:28)
[2019-12-07] MEDS ORDERED: Albuterol 2.5 MG/3 ML NEBULIZER IH PRN (10:12)
[2019-12-07] MEDS: *HR* HYDROcodone/Acet 5/325 mg TABLET PO PRN (13:28)
[2019-12-07] MEDS: OLANZapine 5 MG TAB.RAPDIS PO SCH (21:29)
[2019-12-07] MEDS: *HR* LORazepam 0.5 MG TABLET PO PRN (21:29)
[2019-12-08 01:59] LABS: Basophils # 0.1 K/mcL (0.0-0.2); Basophils % 0.5 %; Eosinophils # 0.4 K/mcL (0.0-0.6); Eosinophils % 3.6 %; Hematocrit 25.6 % (35.3-44.9); Hemoglobin 7.6 g/dL (11.5-15.4); Immature Granulocytes % 0.9 % (0-4); Lymphocytes # 1.6 K/mcL (0.6-4.6); Lymphocytes % 14.4 %; Mean Corpuscular HGB Conc 29.7 g/dL (31.6-35.5); Mean Corpuscular Hemoglobin 24.1 pg (28.0-33.3); Mean Platelet Volume 9.5 fL (9.4-12.4); Monocytes % 8.8 %; Platelet Count 448 K/mcL (140-400); Red Blood Count 3.16 M/mcL (3.82-4.97); Segmented Neutrophils % 71.8 %; White Blood Count 10.8 K/mcL (4.3-11.1)
[2019-12-08 02:00] LABS: Neutrophils # 7.8 K/mcL (1.6-8.9)
[2019-12-08 02:21] LABS: Poikilocytosis 1+ (Not Present)
[2019-12-08 02:22] LABS: Anisocytosis 1+ (Not Present); Hypochromasia Present (Not Present); Large Platelets Present (Not Present); Platelet Estimate Normal (Normal)
[2019-12-08] MEDS: Pantoprazole 40 MG VIAL IVP SCH (07:49)
[2019-12-08] MEDS: carvediloL 6.25 MG TABLET PO SCH (07:50)
[2019-12-08] MEDS: amLODIPine 5 MG TABLET PO SCH (07:50)
[2019-12-08] MEDS: polyethylene glycoL 3350 17 GM POWD.PACK PO SCH (07:50)
[2019-12-08] MEDS: Aspirin Enteric Coated 81 MG Tablet PO SCH (07:50)
[2019-12-08] MEDS: Cyanocobalamin (B-12) 1,000 MCG TABLET PO SCH (07:50)
[2019-12-08] MEDS: lisinopriL 20 MG TABLET PO SCH (07:50)
[2019-12-08] MEDS: Insulin LISPRO 300 UNITS/3 ML VIAL SQ SCH ×2 (07:51→12:57)
[2019-12-08 11:19] VITALS: BP 123/74
[2019-12-08] MEDS: *HR* HYDROcodone/Acet 5/325 mg TABLET PO PRN (13:54)
== END 2019-12-08 17:31 | disposition hospice, inpatient (51) | DRG 189 ==
LOC: EMEROOARM 14:55 → 2ANU 14:55 → SUATTDRO 12-04 14:08
PROVIDERS: ADMIT Internal Medicine; ATTEND Internal Medicine